=== PATIENT | male | born 1990 | race Caucasian/White ===

== ENCOUNTER 2019-05-21 23:05 | Emergency (ER) | payer SELFPAY ==
[2019-05-21] MEDS ORDERED: NORMAL SALINE 1000 ML 1,000 ML IV ONE (23:17)
[2019-05-21] MEDS ORDERED: RINGERS SOLUTION,LACTATED 1,000 ML IV ONE (23:18)
[2019-05-21] MEDS ORDERED: HYDROMORPHONE HCL INJ/PF 2 MG/ML AMPULE IV ONE ×2 (23:20→23:38)
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
[2019-05-21] MEDS ORDERED: HYDROCODONE/ACETAMINOPHEN 5-325 MG TABLET PO ONE (23:24)
[2019-05-22 00:17] LABS: ABSOLUTE BASOPHILS # (AUTO) 0.1 10^3/uL (0.0-0.2); ABSOLUTE EOSINOPHILS # (AUTO) 0.2 10^3/uL (0.0-0.6); ABSOLUTE MONOCYTES (AUTO) 0.9 10^3/uL (0.1-1.4); ABSOLUTE NEUT (AUTO) 6.6 10^3/uL (1.7-8.2); BASOPHILS % (AUTO) 0.8 % (0-2); EOSINOPHILS % (AUTO) 1.5 % (0-6); HEMATOCRIT 44.2 % (37.9-51.0); HEMOGLOBIN 15.4 g/dL (13.5-17.0); LYMPHOCYTES % (AUTO) 34.4 % (13-45); MEAN CORPUSCULAR HEMOGLOBIN 32.8 pg (27.0-33.4); MEAN CORPUSCULAR HGB CONC 34.8 g/dL (32.0-36.0); MEAN CORPUSCULAR VOLUME 94 fl (80-97); MONOCYTES % (AUTO) 7.4 % (3-13); PLATELET COUNT 109 10^3/uL (150-450); RED BLOOD COUNT 4.68 10^6/uL (4.35-5.55); RED CELL DISTRIBUTION WIDTH 14.1 % (11.5-14.0); SEGMENTED NEUTROPHILS % (AUTO) 55.9 % (42-78); TOTAL CELLS COUNTED % (AUTO) 100 %; WHITE BLOOD COUNT 11.8 10^3/uL (4.0-10.5)
[2019-05-22] MEDS ORDERED: MORPHINE SULFATE 10 MG/ML INJ IV ONE (00:19)
[2019-05-22] MEDS ORDERED: SILVER SULFADIAZINE 1% CREAM 50 GM TP ONE (00:20)
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
[2019-05-22 00:33] LABS: ANION GAP 14 (5-19); BLOOD UREA NITROGEN 10 mg/dL (7-20); CALCIUM 9.5 mg/dL (8.4-10.2); CARBON DIOXIDE 22 mmol/L (22-30); CHLORIDE 104 mmol/L (98-107); GLUCOSE 86 mg/dL (75-110); POTASSIUM 4.1 mmol/L (3.6-5.0)
[2019-05-22] MEDS ORDERED: ONDANSETRON HCL INJ/PF 4 MG/2 ML SDV ONE (00:34)
[2019-05-22] MEDS ORDERED: ONDANSETRON HCL INJ/PF 4 MG/2 ML SDV IV ONE ×2 (00:36→00:38)
[2019-05-22] MEDS ORDERED: SILVER SULFADIAZINE 1% CREAM 50 GM ONE (00:40)
[2019-05-22] MEDS ORDERED: DIPH/PERTUSS(ACELL)/TETANUS VAC/PF 0.5 ML SYR (>=10YO) IM ONE (02:32)
[2019-05-22] MEDS ORDERED: HYDROCODONE/ACETAMINOPHEN 5-325 MG (6 TAB/ER DISP) PO PRN (02:33)
[2019-05-22 03:29] VITALS: BP 136/82
== END 2019-05-22 03:14 | disposition home or self-care (01) ==
LOC: ER 23:05
DX: T24.201A Burn of second degree of unspecified site of right lower limb, except ankle and foot, initial encounter (principal); T24.102A Burn of first degree of unspecified site of left lower limb, except ankle and foot, initial encounter; X08.8XXA Exposure to other specified smoke, fire and flames, initial encounter; F17.200 Nicotine dependence, unspecified, uncomplicated
CPT/HCPCS: 99283; 96361; 90471; 96374; 96375; 36415; 85025; 80048; 90715; J2270; J1170; J3490; J2405; J7120

== ENCOUNTER 2019-06-07 14:30 | Emergency (ER) | payer SELFPAY ==
[2019-06-07 14:34] VITALS: BP 126/86
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
== END 2019-06-07 14:45 | disposition home or self-care (01) ==
LOC: ER 14:30
DX: T24.202D Burn of second degree of unspecified site of left lower limb, except ankle and foot, subsequent encounter (principal); T24.201D Burn of second degree of unspecified site of right lower limb, except ankle and foot, subsequent encounter; X08.8XXD Exposure to other specified smoke, fire and flames, subsequent encounter
CPT/HCPCS: 99281

== ENCOUNTER 2019-06-15 19:10 | Emergency (ER) | payer SELFPAY ==
[2019-06-15] MEDS ORDERED: METOCLOPRAMIDE HCL 10 MG TABLET PO ONE (21:15)
[2019-06-15] MEDS ORDERED: CYCLOBENZAPRINE HCL 10 MG TABLET PO ONE (21:15)
[2019-06-15] MEDS ORDERED: KETOROLAC TROMETHAMINE 60 MG/2 ML SDV IM ONE (21:15)
--- NOTE | 2019-06-15 21:19 | ER Document Report ---
ED Medical Screen (RME) - General Chief Complaint: Back Pain Stated Complaint: LOW BACK PAIN Time Seen by Provider: 06/15/19 21:10 Mode of Arrival: Wheelchair Information source: Patient Notes: 29-year-old male presents emergency department with low back pain that radiates across his low back radiates down both legs. Also complains of burning to the back of his arms. Patient reports symptoms started 4 days ago. Denies injury or trauma. Reports he just woke up he was hurting. Reports pain with different positions. Patient is very tearful. Patient reports he is took some of his father's tramadol without relief of symptoms. Reports he has taken Tylenol Motrin without relief of symptoms. Denies history of IV drug use. Denies history of steroid use. Denies history of back pain or injury. Reports he is voiding without problems. Reports last bowel movement was last week. I have greeted and performed a rapid initial assessment of this patient. A comprehensive ED assessment and evaluation of the patient, analysis of test results and completion of the medical decision making process will be conducted by additional ED providers. TRAVEL OUTSIDE OF THE [place] IN LAST 30 DAYS: No - Related Data Allergies/Adverse Reactions: No Known Allergies Allergy (Verified 06/07/19 14:37) Physical Exam - Vital signs Vitals: Temp Pulse Resp BP Pulse Ox 99.7 F 130 H 22 H 130/69 H 98 06/15/19 19:16 06/15/19 19:16 06/15/19 19:16 06/15/19 19:16 06/15/19 19:16 Course - Vital Signs Vital signs: Temp Pulse Resp BP Pulse Ox 99.7 F 148 H 22 H 130/69 H 98 06/15/19 19:16 06/15/19 20:52 06/15/19 19:16 06/15/19 19:16 06/15/19 19:16
[2019-06-15 23:53] LABS: APPEARANCE,URINE SLIGHTLY-CLOUDY; BILIRUBIN,URINE NEGATIVE (NEGATIVE); COLOR,URINE YELLOW; GLUCOSE, URINE NEGATIVE (NEGATIVE); KETONES,URINE NEGATIVE (NEGATIVE); LEUKOCYTE ESTERASE,URINE NEGATIVE (NEGATIVE); NITRITE,URINE NEGATIVE (NEGATIVE); PROTEIN,URINE NEGATIVE (NEGATIVE); URINE SPECIFIC GRAVITY 1.021
[2019-06-16] MEDS ORDERED: PREDNISONE 20 MG TABLET PO ONE (01:45)
[2019-06-16] MEDS ORDERED: OXYCODONE-ACETAMINOPHEN 5-325 MG TABLET PO ONE (01:45)
[2019-06-16 02:08] VITALS: BP 136/68
--- NOTE | 2019-06-16 05:35 | ER Document Report ---
Entered by LAZARO SOTO SCRIBE 06/16/19 0139 Acting as scribe for:YOKASTA LISA IV, MD ED General - General Chief Complaint: Back Pain Stated Complaint: LOW BACK PAIN Time Seen by Provider: 06/15/19 21:10 Primary Care Provider: BASIL HERRERA MD [HONORARY] - Follow up as needed Mode of Arrival: Wheelchair Information source: Patient Notes: This 29 year old male patient presents to the ED today with complaints of lower back pain with radiation to his lower extremities that began x4 days ago. Patient describes the pain as a shooting pain that is sensitive to touch. Patient denies heavy lifting, injury, urinary symptoms, or problems with bowel function. Patient reports decreased appetite since onset. Patient states that the skin on his upper extremities bilaterally, top of thighs, and back are sensitive to touch, stating "it feels like sunburn". Patient notes that he took tylenol and motrin without relief. TRAVEL OUTSIDE OF THE [place] IN LAST 30 DAYS: No - Related Data Allergies/Adverse Reactions: No Known Allergies Allergy (Verified 06/07/19 14:37) Past Medical History - General Information source: Patient - Social History Smoking Status: Never Smoker Cigarette use (# per day): No Chew tobacco use (# tins/day): No Smoking Education Provided: No Frequency of alcohol use: None Drug Abuse: None Family History: Reviewed & Not Pertinent Patient has suicidal ideation: No Patient has homicidal ideation: No Review of Systems - Review of Systems Constitutional: No symptoms reported EENT: No symptoms reported Cardiovascular: No symptoms reported Respiratory: No symptoms reported Gastrointestinal: See HPI, Poor appetite, Last bowel movement - x1 week ago Genitourinary: See HPI. denies: Other - Urinary symptoms Male Genitourinary: No symptoms reported Musculoskeletal: See HPI, Back pain Skin: See HPI, Other - Skin on the back, upper extremities, and top of thighs are sensitive to touch Hematologic/Lymphatic: No symptoms reported Neurological/Psychological: No symptoms reported -: Yes All other systems reviewed and negative Physical Exam - Vital signs Vitals: Temp Pulse Resp BP Pulse Ox 99.7 F 130 H 22 H 130/69 H 98 06/15/19 19:16 06/15/19 19:16 06/15/19 19:16 06/15/19 19:16 06/15/19 19:16 - General General appearance: Alert - HEENT Head: Normocephalic, Atraumatic Eyes: Normal Pupils: PERRL - Respiratory Respiratory status: No respiratory distress Chest status: Nontender Breath sounds: Normal Chest palpation: Normal - Cardiovascular Rhythm: Regular Heart sounds: Normal auscultation Murmur: No - Abdominal Inspection: Normal Distension: No distension Bowel sounds: Normal Tenderness: Nontender Organomegaly: No organomegaly - Back Back: Tender - Lumbar back musculature tenderness with palpation - Extremities General upper extremity: Normal inspection General lower extremity: Other - Well healing velez on anterior surface of lower legs bilaterally - Neurological Neuro grossly intact: Yes - Psychological Associated symptoms: Normal affect, Normal mood - Skin Skin Temperature: Warm Skin Moisture: Dry Skin Color: Normal Course - Vital Signs Vital signs: Temp Pulse Resp BP Pulse Ox 99 F 99 20 136/68 H 98 06/16/19 02:07 06/16/19 02:07 06/16/19 02:07 06/16/19 02:07 06/16/19 02:07 - Laboratory Laboratory results interpreted by me: 06/15/19 23:30 Urine Urobilinogen 2.0 H Discharge - Discharge Clinical Impression: Low back pain Qualifiers: Chronicity: acute Sciatica presence: with sciatica Sciatica laterality: bilateral sciatica Condition: Good Disposition: HOME, SELF-CARE Instructions: Low Back Pain ([facility]) Additional Instructions: Return to the Emergency Department without delay if any worse. Sciatica Your symptoms suggest "sciatica." The pain of sciatica typically radiates down the leg. Numbness in the foot or calf may also occur. Sciatica is caused by irritation of the sciatic nerve or its branches. The irritation can be due to a herniated disk in the spine, swelling and inflammation in the muscles surrounding the sciatic nerve, or direct injury of the nerve itself. Most cases of sciatica will resolve with medical treatment. Bed rest is usually recommended initially. Surgery is only necessary when the condition will not improve with rest and antiinflammatory medication. Muscle relaxers are often given if muscle soreness is present. A CAT scan of the back may be performed if a herniated disk is suspected. Re-examination is necessary if you develop increasing numbness, localized weakness in the foot or ankle, or if the pain does not respond to rest. HOME CARE INSTRUCTIONS & INFORMATION: Thank you for choosing us for your medical needs. We hope you're satisfied with the care you received. After you leave, you must properly care for your problem and, at the same time, observe its progress. Any condition can change. Some illnesses can change rapidly over hours or days. If your condition worsens, return to the Emergency Department or see your physician promptly. ABOUT YOUR X-RAYS AND EKG'S: If you had an EKG or X-rays taken, they have been read by the Emergency Physician. The X-rays and EKG's will also be read by a Radiologist or Head Rigger within 24 hours. If discrepancies are noted, you will be notified by telephone. Please be certain the ED has a correct telephone number & address where you can be reached. Also, realize that some fractures or abnormalities do not show up on initial X-rays. If your symptoms continue, see your physician. ABOUT YOUR LABORATORY TEST: If you had laboratory tests, the results have been reviewed by the Emergency Physician. Some test results (for example cultures) may not be available for several days. You will be contacted if any test result shows you need additional treatment. Please be certain the ED has a correct telephone number and address where you can be reached. ABOUT YOUR MEDICATIONS: You will receive instructions on how to take your medicine on the prescription label you receive. Additional information may be provided by the Pharmacy. If you have questions afterwards, call the ED for clarification or further instructions. Some prescribed medications may cause drowsiness. Do not perform tasks such as driving a car or operating machinery without consulting your Pharmacist. If you feel you need a refill of pain medication, your condition will need re-evaluation. Please do not call for a refill of any medication. ABOUT YOUR SIGNATURE: Signature of this document acknowledges to followin. Understanding that you received emergency treatment and that you may be released before al medical problems are known or treated. Please be certain the ED has a correct phone number & address where you can be reached. 2. Acknowledgement that you will arrange for follow-up care as recommended. 3. Authorization for the Emergency Physician to provide information to your follow-up Physician in order to maximize your care. AT ANY TIME, IF YOUR SYMPTOMS CHANGE SIGNIFICANTLY OR WORSEN OR YOU DEVELOP NEW SYMPTOMS, RETURN TO THE EMERGENCY DEPARTMENT IMMEDIATELY FOR RE-EVALUATION. OUR GOAL IS TO PROVIDE EXCELLENT MEDICAL CARE! WE HOPE THAT WE HAVE MET YOUR EXPECTATIONS DURING YOUR EMERGENCY DEPARTMENT VISIT AND THAT YOU FEEL YOU HAVE RECEIVED EXCELLENT CARE! Prescriptions: Oxycodone HCl/Acetaminophen [Percocet 5-325 mg Tablet] 1 - 2 tab PO Q6HP PRN #15 tablet PRN Reason: Prednisone [Deltasone 20 mg Tablet] 3 tab PO DAILY 4 Days #12 tablet Referrals: BASIL HERRERA MD [HONORARY] - Follow up as needed I personally performed the services described in the documentation, reviewed and edited the documentation which was dictated to the scribe in my presence, and it accurately records my words and actions.
== END 2019-06-16 02:09 | disposition home or self-care (01) ==
LOC: ER 19:10
DX: M54.42 Lumbago with sciatica, left side (principal); M54.41 Lumbago with sciatica, right side
CPT/HCPCS: 99283; 96372; 81001; J1885; J7512